=== PATIENT | male | born 2005 | race Caucasian/White ===

== ENCOUNTER 2024-02-04 00:26 | Emergency (ER) | payer SELFPAY ==
[~2024-02-04] VITALS: Ht 172.7 cm; Wt 75.0 kg
[2024-02-04 00:28] VITALS: TEMP 98.2; O2SAT 100
[2024-02-04 02:54] VITALS: BP 153/108; PULSE 90; RESP 18
[2024-02-04] MEDS: IBUPROFEN 600MG TABLET PO ONE (02:54)
[2024-02-04] MEDS ORDERED: IBUP-2029 MT (04:03)
== END 2024-02-04 04:21 | disposition home or self-care (01) ==
LOC: ER 00:26
DX: S39.012A Strain of muscle, fascia and tendon of lower back, initial encounter (principal); S80.12XA Contusion of left lower leg, initial encounter; S20.219A Contusion of unspecified front wall of thorax, initial encounter; V49.49XA Driver injured in collision with other motor vehicles in traffic accident, initial encounter; Y93.89 Activity, other specified; Y92.89 Other specified places as the place of occurrence of the external cause; Y99.8 Other external cause status
CPT/HCPCS: 71045; 72100; 73030; 73590; 99284